=== PATIENT | female | born 1985 | race Caucasian/White ===

== ENCOUNTER → 2020-12-23 | Outpatient (CLI) | payer BC | END | disposition home or self-care (01) | LOC: LABWHC1 10:30 | PROVIDERS: ATTEND Obstetrics & Gynecology | DX: O20.0 Threatened abortion (principal); Z3A.00 Weeks of gestation of pregnancy not specified | CPT/HCPCS: 36415; 84702 ==

== ENCOUNTER → 2020-12-25 | Outpatient (CLI) | payer BC | END | disposition home or self-care (01) | LOC: LABWHC1 11:13 | PROVIDERS: ATTEND Obstetrics & Gynecology | DX: O20.0 Threatened abortion (principal); Z3A.00 Weeks of gestation of pregnancy not specified | CPT/HCPCS: 36415; 84702 ==

== ENCOUNTER → 2020-12-30 | Outpatient (CLI) | payer BC ==
[2020-12-30 16:20] LABS: Basophils % (A) 0 %; Eosinophils # (A) 0.1 k/uL (0-0.7); Eosinophils % (A) 1 %; HCT 40.7 % (34.0-46.0); Lymphocytes # (A) 2.4 k/uL (1.0-4.8); Lymphocytes % (A) 30 %; MCH 30.5 pg (25.0-35.0); MCHC 34.3 g/dL (31.0-37.0); MCV 88.9 fL (80.0-100.0); Mean Platelet Volume 7.1; Monocytes # (A) 0.4 k/uL (0-1.0); Monocytes % (A) 5 %; Neutrophils # (A) 4.9 k/uL (1.3-7.7); Neutrophils % (A) 61 %; Platelet Count 299 k/uL (150-450); RBC 4.58 m/uL (3.80-5.40); RDW 13.3 % (11.5-15.5)
== END | disposition home or self-care (01) ==
LOC: LABPAT 15:12
PROVIDERS: ATTEND Obstetrics & Gynecology
DX: Z01.818 Encounter for other preprocedural examination (principal); O02.1 Missed abortion; Z3A.00 Weeks of gestation of pregnancy not specified
CPT/HCPCS: 36415; 85025; 86850; 86900; 86901

== ENCOUNTER 2020-12-31 15:28 | Day surgery (SDC) | payer BC ==
[2020-12-31] MEDS ORDERED: ONDANSETRON 4 MG/2 ML VIAL ONE (15:44)
[2020-12-31] MEDS ORDERED: DEXAMETHASONE SOD PHOSPHATE 4 MG/ML 1 ML VIAL IVP ONE (15:56)
[2020-12-31] MEDS ORDERED: LACTATED RINGERS 1,000 ML IV ONE (15:56)
[2020-12-31] MEDS ORDERED: LIDOCAINE 1% INJ 10MG/ML (20 ML MDV) ONE (16:21)
[2020-12-31] MEDS ORDERED: KETOROLAC 15 MG/ML 1 ML VIAL ONE (16:21)
[2020-12-31] MEDS ORDERED: SUCCINYLCHOLINE CHLORIDE 100 MG/5 ML SYR IV ONE (16:21)
[2020-12-31] MEDS ORDERED: PROPOFOL 10 MG/ML 20 ML VIAL IV ONE (16:21)
[2020-12-31] MEDS ORDERED: fentaNYL (PF) 50 MCG/ML 2 ML AMP ONE (16:21)
[2020-12-31] MEDS ORDERED: SIMETHICONE 80 MG CHEWABLE PO PRN (17:04)
[2020-12-31] MEDS ORDERED: ONDANSETRON 4 MG/2 ML VIAL IVP PRN (17:04)
[2020-12-31] MEDS ORDERED: METOCLOPRAMIDE 5 MG/ML 2 ML VIAL IVP PRN (17:04)
[2020-12-31] MEDS ORDERED: Acetaminophen-Codeine 300-30mg TAB PO PRN ×2 (17:04)
[2020-12-31] MEDS ORDERED: diphenhydrAMINE 50 MG/ML 1 ML VIAL IVP PRN (17:04)
[2020-12-31] MEDS ORDERED: KETOROLAC 15 MG/ML 1 ML VIAL IVP PRN (17:04)
[2020-12-31] MEDS ORDERED: IBUPROFEN 600 MG TAB PO PRN (17:04)
[2020-12-31 17:06] VITALS: TEMP 97.5
--- NOTE | 2020-12-31 17:10 | P.OP ---
Date of Procedure: 12/31/20 Preoperative Diagnosis: #1. 7+ week missed #2. Fibroid uterus Postoperative Diagnosis: Same Procedure(s) Performed: #1. Dilation and aspiration curettage Anesthesia: ADI Surgeon: Demetri Eddy Estimated Blood Loss (ml): 200 IV fluids (ml): 400 Urine output (ml): 10 Pathology: other (Intrauterine contents) Condition: stable Disposition: PACU Operative Findings: Preoperative pelvic examination demonstrated a roughly 8 week midplane to slightly anteverted mobile normal shaped uterus with a probable roughly 8 cm mobile fibroid above and left of the uterus which I suspect to be pedunculated in nature. Adnexa were otherwise normal and without mass bilaterally. The uterus sounded to approximately 11 cm. Tissue was clearly seen passing through the tubing during aspiration curettage. Use of the sharp curet produced no further tissue and demonstrated the typical gritty texture. Uterus was appreciably smaller following curettage. Patient has minimal descensus of the uterus into the lower vagina. Description of Procedure: The patient was prepped and draped in usual fashion after general endotracheal anesthesia was administered by the anesthesiologist. A weighted speculum was pl aced and the bladder was draining approximately 10 mL of clear demetri urine. The anterior lip of the cervix was grasped with a single-tooth tenaculum and uterus sounded to 11 cm as noted above. Serial dilation was carried out to admit a #8 curved aspiration curet which was placed to the fundus of the uterus at which time suction was applied. After building adequate suction, thorough and circumferential aspiration curettage was carried out from the fundus to the cervix with tissue clearly seen passing through the tubing on the first pass. Second pass was made at which time there was no tissue noted. The aspiration curet was set aside in favor of a sharp curette was utilized to again thoroughly and circumferentially curet the contents of the in vitro cavity into the cervix and vagina with no tissue noted in the typical gritty texture felt throughout. Aspiration curet was used for one last pass at which again there was no further tissue noted. All instrumentation was removed and both tenaculum sites were noted to be bleeding and made hemostatic with pressure. Estimated blood loss for the entire case was approximately 200 mL. There were no complications. All sponge, instrument, needle counts were correct. The patient tolerated the procedure well and proceeded to the recovery room in stable condition.
[2020-12-31] MEDS ORDERED: LACTATED RINGERS 1,000 ML IV SCH (17:15)
[2020-12-31 17:17] VITALS: RESP 16
[2020-12-31 18:01] VITALS: BP 148/92; PULSE 91
== END 2020-12-31 18:27 | disposition home or self-care (01) ==
LOC: OR 15:28
PROVIDERS: ATTEND Obstetrics & Gynecology
DX: O02.1 Missed abortion (principal); D25.9 Leiomyoma of uterus, unspecified; Z98.891 History of uterine scar from previous surgery; Z82.49 Family history of ischemic heart disease and other diseases of the circulatory system; Z83.49 Family history of other endocrine, nutritional and metabolic diseases; Z80.3 Family history of malignant neoplasm of breast; Z90.13 Acquired absence of bilateral breasts and nipples
CPT/HCPCS: 59820; 86900; 86901; 88305; 86850; J1100; J2405; J2001; J3010; J1885; J0330; J2704

== ENCOUNTER 2021-08-20 10:14 | Outpatient (CLI) | payer BC ==
[2021-08-20 11:11] LABS: Basophils % (A) 0 %; Eosinophils # (A) 0.2 k/uL (0-0.7); Eosinophils % (A) 2 %; HGB 12.2 gm/dL (11.4-16.0); Lymphocytes # (A) 2.3 k/uL (1.0-4.8); Lymphocytes % (A) 24 %; MCHC 33.9 g/dL (31.0-37.0); MCV 91.6 fL (80.0-100.0); Mean Platelet Volume 7.3; Monocytes # (A) 0.4 k/uL (0-1.0); Monocytes % (A) 4 %; Neutrophils # (A) 6.6 k/uL (1.3-7.7); Neutrophils % (A) 68 %; Platelet Count 274 k/uL (150-450); RBC 3.93 m/uL (3.80-5.40); RDW 13.4 % (11.5-15.5); WBC 9.8 k/uL (3.8-10.6)
[2021-08-20 11:29] LABS: Appearance,Urine Clear (Clear); Bilirubin,Urine Negative (Negative); Blood,Urine Small (Negative); Color,Urine Light Yellow; Glucose,Urine (UA) Negative (Negative); Ketones,Urine Negative (Negative); Leukocyte Esterase,Urine Negative (Negative); Mucus,Urine Rare /hpf; Nitrite,Urine Negative (Negative); Protein,Urine Negative (Negative); RBC,Urine 2 /hpf (0-5); Specific Gravity,Urine 1.007 (1.001-1.035); Squamous Epithelial Cell,Urine 3 /hpf (0-4); Urobilinogen,Urine <2.0 mg/dL (<2.0); WBC,Urine 1 /hpf (0-5)
[2021-08-20 11:41] LABS: ALT 12 U/L (4-34); AST 19 U/L (14-36); African American GFR (CKD) >90 (>60 ml/min/1.73 sqM); Blood Urea Nitrogen 6 mg/dL (7-17); LDH 351 U/L (313-618); Non-African American GFR(CKD) >90 (>60 ml/min/1.73 sqM); Uric Acid 3.9 mg/dL (3.7-7.4)
[2021-08-20 11:49] LABS: Creatinine,Urine Random 43.8 mg/dL; Protein/Creatinine Ratio,Urine 0.594
[2021-08-20] MEDS ORDERED: LABETALOL 200 MG TAB PO STA (12:00)
[2021-08-20 13:33] VITALS: BP 165/97; PULSE 106; RESP 17; TEMP 96.9
--- NOTE | 2021-08-21 11:23 | P.MSEPDOC ---
Presenting Problems - Arrival Data Date of Arrival on Unit: 08/20/21 Time of Arrival on Unit: 10:14 Mode of Transport: Ambulatory - Complaint OB-Reason for Admission/Chief Complaint: Decreased Movement Comment: Pt arrives to triage with complaints of decreased movement. Medical History - Information : 3 Para: 1 Term: 1 : 0 Abortions: Spontaneous or Elective: 1 Number of Living Children: 0 - Gestational Age Gestational Age by FARRAH (wks/days): 25 Weeks and 4 Days - History Complications: Chronic HTN Review of Systems - Review of Systems Constitutional: No problems Breast: No problems ENT: No problems Cardiovascular: No problems Respiratory: No problems Gastrointestinal: No problems Genitourinary: No problems Musculoskeletal: No problems Neurological: No problems Skin: No problems Vital Signs - Temperature Temperature: 96.9 F Temperature Source: Temporal Artery Scan - Pulse Pulse Oximetery Pulse Rate: 106 Pulse Assessment Method: Pulse Oximetry - Respirations Respiratory Rate: 17 Oxygen Delivery Method: Room Air O2 Sat by Pulse Oximetry: 97 - Blood Pressure Right Arm Blood Pressure: 165/97 Blood Pressure Mean: 119 Blood Pressure Source: Automatic Cuff Medical Screen Scoring - Assessment - Baby A Baseline FHR: 140 Physician Notification - Physician Notified Physician Notified Date: 08/20/21 Physician Notified Time: 12:41 Physician: Carli Villavicencio New Order Received: Yes - Notification Comment Comment: Spoke with Dr. Villavicencio regarding pt's BP 30 minutes after administering 200. mg PO Labetalol. New orders include prescribed 200 mg PO Labetalol twice daily at home, hold medication if systolic BP is less than 120, and follow up with Dr. Eddy in office on Monday08/23/21. Maternal Triage Index - Maternal Triage Index Presenting for scheduled procedure w/no complaint: No - Stat/Priority 1 Stat Priority 1: Yes Provider Notified: Carli Villavicencio Provider Notified Time: 10:45 Criteria Met for Priority 1: Pt's BP Disposition - Disposition OB Disposition: Discharge to home Discharge Date: 08/20/21 Discharge Time: 12:48 I agree with the RN Medical Screening Exam: Yes Case reviewed; plan agreed upon as documented in EMR&OBIX.: Yes Diagnosis: chronic hypertension in
== END 2021-08-20 12:48 | disposition home or self-care (01) ==
LOC: FBPOP 10:14
PROVIDERS: ATTEND Obstetrics & Gynecology
DX: O16.2 Unspecified maternal hypertension, second trimester (principal); Z3A.25 25 weeks gestation of pregnancy
CPT/HCPCS: 81001; 82565; 82570; 83615; 84156; 84450; 84460; 84520; 84550; 85025; 99215

== ENCOUNTER 2021-11-24 08:30 | Inpatient (IN) | payer BC ==
[2021-11-24] MEDS ORDERED: CITRIC ACID-SODIUM CITRATE 15 ML CUP PO ONE (10:17)
[2021-11-24] MEDS ORDERED: LACTATED RINGERS 1,000 ML IV SCH (10:30)
[2021-11-24 10:48] LABS: Glucose,Whole Blood 84 mg/dL (75-99)
[2021-11-24 11:09] LABS: Basophils % (A) 0 %; Eosinophils # (A) 0.1 k/uL (0-0.7); Eosinophils % (A) 1 %; Lymphocytes # (A) 2.4 k/uL (1.0-4.8); Lymphocytes % (A) 23 %; MCHC 33.5 g/dL (31.0-37.0); MCV 89.4 fL (80.0-100.0); Mean Platelet Volume 8.1; Monocytes # (A) 0.5 k/uL (0-1.0); Monocytes % (A) 5 %; Neutrophils % (A) 69 %; Platelet Count 256 k/uL (150-450); RBC 4.02 m/uL (3.80-5.40); RDW 14.3 % (11.5-15.5); WBC 10.1 k/uL (3.8-10.6)
[2021-11-24 11:11] LABS: INR 0.9 (<1.2); Partial Thromboplastin Time 23.5 sec (22.0-30.0); Prothrombin Time 9.7 sec (9.0-12.0)
[2021-11-24 11:18] LABS: ALT 15 U/L (4-34); AST 30 U/L (14-36); African American GFR (CKD) >90 (>60 ml/min/1.73 sqM); Blood Urea Nitrogen 8 mg/dL (7-17); LDH 530 U/L (313-618); Non-African American GFR(CKD) >90 (>60 ml/min/1.73 sqM); Uric Acid 4.1 mg/dL (3.7-7.4)
[2021-11-24 11:33] LABS: Creatinine,Urine Random 73.6 mg/dL; Protein/Creatinine Ratio,Urine 0.435
--- NOTE | 2021-11-24 11:48 | P.PCN ---
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 Tooth # D - Composite crown and Vital pulpotomy 2. Tooth # E - Composite crown and Indirect pulp cap 3. Tooth # F - Composite crown and Indirect pulp cap 4. Tooth # G - Composite crown 5. Tooth # I - Dental composite 6. Tooth # J - Dental composite 7. Tooth # K - Dental composite 8. Tooth # L - Dental composite Throat pack out 10:46 Oral tube shifted Throat pack in 10:48 9, Tooth # A - Dental composite 10. Tooth # B - Dental composite 11. Tooth # S - Dental composite 12. Tooth # T - Stainless steel crown and Direct pulp cap Thrat pack out 11:21 Blood loss 1ml Post Op Instructions to parent
[2021-11-24] MEDS ORDERED: ONDANSETRON 4 MG/2 ML VIAL IVP PRN ×2 (12:06→13:15)
[2021-11-24] MEDS ORDERED: NALBUPHINE 10 MG/ML (1 ML AMP) IV PRN (12:06)
[2021-11-24] MEDS ORDERED: diphenhydrAMINE 50 MG/ML 1 ML VIAL IVP PRN ×3 (12:06→13:15)
[2021-11-24] MEDS ORDERED: NALOXONE 0.4 MG/ML 1 ML VIAL IV PRN (12:06)
[2021-11-24] MEDS ORDERED: HYDROmorphone 1 MG/ML 1 ML SYRINGE IVP PRN (12:06)
[2021-11-24] MEDS ORDERED: KETOROLAC 30 MG/ML 1 ML VIAL IVP PRN (12:06)
[2021-11-24] MEDS ORDERED: ONDANSETRON 4 MG/2 ML VIAL ONE (12:13)
[2021-11-24] MEDS ORDERED: MORPHINE SULFATE (PF) 0.3 MG/0.3 ML SYR ONE (12:13)
[2021-11-24] MEDS ORDERED: ePHEDrine 50 MG/ML 1 ML VIAL ONE (12:13)
[2021-11-24] MEDS ORDERED: KETOROLAC 15 MG/ML 1 ML VIAL ONE (12:13)
[2021-11-24] MEDS ORDERED: OXYTOCIN 30 UNITS/500 ML NS BAG IV ONE (12:13)
[2021-11-24] MEDS ORDERED: NALBUPHINE 10 MG/ML (1 ML AMP) ONE (12:13)
[2021-11-24 12:49] LABS: Appearance,Urine Cloudy (Clear); Bilirubin,Urine Negative (Negative); Blood,Urine Small (Negative); Color,Urine Yellow; Glucose,Urine (UA) Negative (Negative); Ketones,Urine Negative (Negative); Leukocyte Esterase,Urine Trace (Negative); Nitrite,Urine Negative (Negative); PH, Urine 7.5 (5.0-8.0); Protein,Urine Trace (Negative); RBC,Urine 1 /hpf (0-5); Specific Gravity,Urine 1.012 (1.001-1.035); Squamous Epithelial Cell,Urine 1 /hpf (0-4); Urobilinogen,Urine <2.0 mg/dL (<2.0); WBC,Urine 1 /hpf (0-5)
[2021-11-24] MEDS ORDERED: ZOLPIDEM 5 MG TAB PO PRN (13:15)
[2021-11-24] MEDS ORDERED: HYDROmorphone 2 MG TAB PO PRN ×2 (13:15)
[2021-11-24] MEDS ORDERED: METOCLOPRAMIDE 5 MG/ML 2 ML VIAL IVP PRN (13:15)
[2021-11-24] MEDS ORDERED: OXYTOCIN 30 UNITS/500 ML NS 30 UNIT in SALINE 1 500ML.BAG IV SCH (13:15)
[2021-11-24] MEDS ORDERED: SIMETHICONE 80 MG CHEWABLE PO PRN (13:15)
[2021-11-24] MEDS ORDERED: diphenhydrAMINE 25 MG CAP PO PRN (13:15)
[2021-11-24] MEDS ORDERED: diphenhydrAMINE 50 MG CAP PO PRN (13:15)
--- NOTE | 2021-11-24 13:24 | P.HPOB ---
History of Present Illness H&P Date: 11/24/21 Chief Complaint: 39-2/7 weeks, previous section, undesired fertility The patient is a 36-year-old 3 para 1011 admitted at 39-2/7 weeks as established by 9 week ultrasound. She is admitted for repeat low transverse section with intraoperative bilateral tubal occlusion using Filshie clips having previously undergone section. She did consent to tubal occlusion both in the office and here verbally. Her has been complicated by gestational diabetes for which she has had reassuring and well- managed diet controlled sugars. testing has been reassuring weekly. She additionally was started at the beginning of the third trimester on labetalol 100 mg twice daily for elevated blood pressures. Multiple workups for preeclampsia were noted to be negative. She does carry a history of pre- existing proteinuria and has never had any further problems during the . She also is known to have an 8 cm fundal fibroid by ultrasound which has not caused any problems during the nor grown significantly. Most recently, she has also been found to be breech in presentation. Group B strep status is negative. On labor and delivery, all signs reassuring with a category 1 heart rate tracing. Obstetrical history: 3 para 1011 with 1 term section one early miscarriage requiring D&C. Current statistics are listed in history present illness. EDC of 11/29/2021 was established by 9 week ultrasound. Laboratory workup demonstrates a blood type of O+ with a negative antibody sc reen. Rubella status is immune. The remainder of the laboratory workup was within normal limits. Early Glucola was normal was followed by an elevated second trimester Glucola and an abnormal three-hour glucose tolerance test making the diagnosis of gestational diabetes. Group B strep status is negative. Gynecologic history: Unremarkable with no history of any infections to include STDs. Review of Systems Review of systems is confined to history of present illness. Past Medical History Past Medical History: No Reported History Additional Past Medical History / Comment(s): GDM, hypertension History of Any Multi-Drug Resistant Organisms: None Reported Additional Past Surgical History / Comment(s): DOUBLE MASTECTOMY, D&C Past Anesthesia/Blood Transfusion Reactions: No Reported Reaction Past Psychological History: No Psychological Hx Reported Smoking Status: Never smoker Past Alcohol Use History: None Reported Past Drug Use History: None Reported Additional Drug Use History / Comment(s): FORMER SMOKER 4 YEARS AGO-TOBACCO - Past Family History Mother Additional Family Medical History / Comment(s): BREAST CX Father Family Medical History: Hypertension Medications and Allergies Home Medications Medication Instructions Recorded Confirmed Type Pnv,Calcium 72/Iron/Folic Acid 1 each PO DAILY 12/31/20 11/24/21 History [ Plus Tablet] Aspirin [Adult Low Dose Aspirin EC] 81 mg PO DAILY 08/20/21 11/24/21 History Labetalol [Trandate] 200 mg PO BID 11/24/21 11/24/21 History Allergies Allergy/AdvReac Type Severity Reaction Status Date / Time No Known Allergies Allergy Verified 11/24/21 10:16 Exam Vital Signs Temp Pulse Resp BP Pulse Ox 11/24/21 10:15 97.2 F L 92 18 174/88 98 Intake and Output 11/23/21 11/24/21 11/24/21 22:59 06:59 14:59 Other: Weight 105.233 kg In general, this is a well-developed, well-nourished white female in no acute distress. Her heart has a regular rhythm and rate without murmur. Her lungs clear to auscultation bilaterally in all lizarraga. Her abdomen is gravid, nondi stended, has normal active bowel sounds, soft, nontender, and without any palpable masses aside from the uterine fundus. Her extremities are without any cyanosis, clubbing, or edema and are nontender to palpation bilaterally. Digital cervical examination is deferred. Results Result Diagrams: 11/24/21 10:45 11/24/21 10:45 Abnormal Lab Results - Last 24 Hours (Table) 11/24/21 Range/Units 11:00 Urine Appearance Cloudy H (Clear) Urine Protein Trace H (Negative) Urine Blood Small H (Negative) Ur Leukocyte Esterase Trace H (Negative) Assessment and Plan (1) Family planning Current Visit: Yes Status: Acute Code(s): Z30.09 - ENCOUNTER FOR OTH GENERAL CNSL AND ADVICE ON CONTRACEPTION SNOMED Code(s): 803402113 (2) Previous section Current Visit: Yes Status: Acute Code(s): Z98.891 - HISTORY OF UTERINE SCAR FROM PREVIOUS SURGERY SNOMED Code(s): 597247435 (3) Term Current Visit: Yes Status: Acute Code(s): Z34.90 - ENCNTR FOR SUPRVSN OF NORMAL , UNSP, UNSP TRIMESTER SNOMED Code(s): 68091221 Plan: The patient is admitted for repeat low transverse section. She has also consented to intraoperative bilateral tubal occlusion using Filshie clips. The risks and, occasions all of these procedures have been thoroughly discussed and she has understood and agreed to proceed.
--- NOTE | 2021-11-24 13:30 | P.OP ---
Date of Procedure: 11/24/21 Preoperative Diagnosis: #1. 39-2/7 weeks, previous section, requesting repeat #2. Undesired fertility #3. Gestational diabetes #4. -induced hypertension #5. Breech presentation #. Fibroid uterus Postoperative Diagnosis: Same Procedure(s) Performed: #1. Repeat low transverse section #2. Intraoperative bilateral tubal occlusion using Filshie clips Anesthesia: spinal Surgeon: Demetri Eddy Office Services Associate #1: Jo-Ann Farias Estimated Blood Loss (ml): 872 IV fluids (ml): 900 Urine output (ml): 100 Pathology: none sent Condition: stable Disposition: floor Operative Findings: The patient was taken the operating room where she underwent repeat low transverse section was delivered of a viable 7 lbs. 9 oz. baby girl with Apgars of 9 at 1 minute and 9 at 5 minutes delivered in the davie breech presentation using standard breech maneuvers. The placenta was delivered manually, intact, and grossly normal with a grossly normal three-vessel cord. The uterus was noted to have a very large right fundal fibroid which was subserosal in nature and slightly posterior to the cornea. The tubes and ovaries were noted to be somewhat scarred to each other but we were able to place a Filshie clip without difficulty in the isthmic portion on each tube were was firmly affixed bilaterally. Description of Procedure: The patient was prepped and draped in usual fashion after spinal anesthesia was administered by the anesthesiologist. A Pfannenstiel incision was made through pre-existing scar and extended into the abdominal cavity with some difficulty as was a moderate amount of scarring at the level of the fascia and rectus muscles. Intraoperatively, the bladder peritoneum was elevated, incised, and reflected distally. A 2 cm incision was made in the transverse plane of the lower uterine segment to enter the uterus at which time clear fluid was noted. The incision was extended in both directions using the bandage scissors as well as to some extent and bluntly. The breech was encountered in the field and was delivered through the wound with the legs and arms being delivered with standard breech maneuvers. The head was easily delivered and the cord was doubly clamped, cut, and the infant passed resuscitative measures with weight and Apgars as noted above. cord blood was collected. A segment of cord was doubly clamped, cut, and set aside should cord gases become necessary. The placenta was delivered manually and intact as noted above. The uterus was exteriorized and the interior cavity swept of any remaining placental or membranous fragments margins of the incision were grasped with Quigley clamps and the incision closed in a single running locking stitch of 0 chromic catgut proceeding from margin to margin. Hemostasis appeared to be excellent. The posterior cul-de-sac was then suctioned with a guard as well as a laparotomy sponge. The uterine and ovarian findings are as noted above. After reaffirming the patient's desire for tubal ligation, a Filshie clip was placed across the isthmic portion of each fallopian tube approximately 2-3 cm from the cornea where was firmly affixed bilaterally. The uterus was replaced within the abdominal cavity and reexamined. The incision was noted to be hemostatic. The parietal peritoneum was loosely reapproximated in the layer of muscles made hemostatic with the Bovie. Once hemostasis was achieved, the fascia was closed with 2 running stitches of 0 Vicryl proceeding from the lateral margins to the midpoint. The subcutaneous tissues were irrigated, made hemostatic with the Bovie, and reapproximated with a running stitch of 30 plain catgut. The skin was reapproximated with a running subcuticular stitch of 4-0 Vicryl followed by half-inch Steri-Strips placed with Mastisol. Estimated blood loss for the case is approximately 872 mL (calculated). All sponge, instrument, and needle counts were correct. There were no complications. The patient tolerated the procedure well and proceeded to the recovery room in stable condition. Both mother and are resting comfortably in recovery.
[2021-11-24] MEDS: ACETAMINOPHEN TAB 500 MG TAB PO SCH ×2 (15:39→21:17)
[2021-11-24] MEDS: LABETALOL 200 MG TAB PO SCH ×2 (15:39→21:18)
[2021-11-24] MEDS: LACTATED RINGERS 1,000 ML IV SCH ×2 (15:40→21:18)
[2021-11-24] MEDS: IBUPROFEN 600 MG TAB PO SCH (18:53)
[2021-11-24] MEDS: SENNOSIDES-DOCUSATE SODIUM 1 EACH TAB PO SCH (21:17)
[2021-11-25] MEDS: IBUPROFEN 600 MG TAB PO SCH ×4 (03:01→20:08)
[2021-11-25] MEDS: ACETAMINOPHEN TAB 500 MG TAB PO SCH ×4 (05:44→23:30)
[2021-11-25 07:02] LABS: Basophils % (A) 0 %; Eosinophils % (A) 0 %; HGB 10.7 gm/dL (11.4-16.0); Lymphocytes # (A) 1.8 k/uL (1.0-4.8); Lymphocytes % (A) 10 %; MCH 29.2 pg (25.0-35.0); MCHC 32.5 g/dL (31.0-37.0); MCV 89.6 fL (80.0-100.0); Mean Platelet Volume 8.4; Monocytes # (A) 0.7 k/uL (0-1.0); Monocytes % (A) 4 %; Neutrophils # (A) 14.1 k/uL (1.3-7.7); Neutrophils % (A) 84 %; Platelet Count 227 k/uL (150-450); RBC 3.69 m/uL (3.80-5.40); RDW 14.2 % (11.5-15.5); WBC 16.8 k/uL (3.8-10.6)
--- NOTE | 2021-11-25 08:49 | P.PNOBGPC ---
Subjective - Subjective Patient reports: Reports appetite normal, Reports voiding normally, Reports pain well controlled, Reports ambulating normally [place]: doing well Objective - Vital Signs Latest vital signs: Vital Signs Temp Pulse Resp BP Pulse Ox 11/25/21 05:38 87 145/84 11/25/21 03:30 97.6 F 88 16 153/91 95 11/25/21 02:00 97 11/24/21 23:00 98.0 F 94 18 109/73 97 11/24/21 20:30 98.0 F 83 18 159/98 95 11/24/21 16:53 18 11/24/21 15:16 97.1 F L 88 18 165/90 97 11/24/21 14:59 18 11/24/21 14:46 83 18 156/84 97 11/24/21 14:16 85 18 150/91 95 11/24/21 14:01 95 18 145/80 96 11/24/21 13:46 85 18 139/78 98 11/24/21 13:31 92 18 143/92 97 11/24/21 13:16 97.0 F L 89 18 143/92 95 11/24/21 13:06 18 95 11/24/21 10:15 97.2 F L 92 18 174/88 98 Intake and Output 11/24/21 11/25/21 11/25/21 22:59 06:59 14:59 Output Total 650 875 Balance -650 -875 Output: Urine 600 875 Uretheral (Martin) 300 475 Output, Quantitative 50 Blood Loss Other: Voiding Method Indwelling Catheter # Voids 0 - Exam Extremities: Present: normal Abdomen: Present: normal appearance, soft. Absent: distention, tenderness Incision: Present: normal, dry, intact Uterus: Present: normal, firm (Uterine fundus is tonic an appropriate tender at the umbilicus.) - Labs Labs: Abnormal Lab Results - Last 24 Hours (Table) 11/24/21 11/25/21 Range/Units 11:00 06:37 WBC 16.8 H (3.8-10.6) k/uL RBC 3.69 L (3.80-5.40) m/uL Hgb 10.7 L (11.4-16.0) gm/dL Hct 33.0 L (34.0-46.0) % Neutrophils # 14.1 H (1.3-7.7) k/uL Urine Appearance Cloudy H (Clear) Urine Protein Trace H (Negative) Urine Blood Small H (Negative) Ur Leukocyte Esterase Trace H (Negative) Assessment and Plan (1) Family planning Current Visit: Yes Status: Acute Code(s): Z30.09 - ENCOUNTER FOR OTH GENERAL CNSL AND ADVICE ON CONTRACEPTION SNOMED Code(s): 229125140 (2) Previous section Current Visit: Yes Status: Acute Code(s): Z98.891 - HISTORY OF UTERINE SCAR FROM PREVIOUS SURGERY SNOMED Code(s): 549595970 (3) Term Current Visit: Yes Status: Acute Code(s): Z34.90 - ENCNTR FOR SUPRVSN OF NORMAL , UNSP, UNSP TRIMESTER SNOMED Code(s): 85417909 (4) S/P section Current Visit: Yes Status: Acute Code(s): Z98.891 - HISTORY OF UTERINE SCAR FROM PREVIOUS SURGERY SNOMED Code(s): 475095984 Plan: Continue routine and postoperative care. I have encouraged the patient and the hallways routinely. She is Juma tolerating a regular diet. I would anticipate discharge home tomorrow pending no complications. She does continue to require labetalol 200 mg twice daily at this time for blood pressure management.
[2021-11-25] MEDS: LABETALOL 200 MG TAB PO SCH ×2 (08:58→21:28)
[2021-11-25] MEDS: SENNOSIDES-DOCUSATE SODIUM 1 EACH TAB PO SCH ×2 (08:58→20:08)
--- NOTE | 2021-11-25 10:32 | P.PN ---
Progress Note - Text Progress Note Date: 11/25/21 Anesthesia Postop day 1 Subjective: Status Post section with Duramorph. Patient seen and examined. Doing well without complaint. VAS 3 out of 10. No nausea vomiting or pruritus. Afebrile. Gross lower extremity strength intact. Without apparent anesthetic complications. Objective: Vital signs reviewed Heart: Regular Rate Lungs: Good chest excursion Abdomen: Appears nondistended Assessment: Status post with Duramorph postop day 1 Plan: Continue current care with your medical management.
[2021-11-25] MEDS: LACTATED RINGERS 1,000 ML IV SCH (19:46)
[2021-11-26] MEDS: IBUPROFEN 600 MG TAB PO SCH ×2 (02:45→08:40)
[2021-11-26] MEDS: ACETAMINOPHEN TAB 500 MG TAB PO SCH (05:38)
[2021-11-26] MEDS: SENNOSIDES-DOCUSATE SODIUM 1 EACH TAB PO SCH (08:39)
[2021-11-26] MEDS: LABETALOL 200 MG TAB PO SCH (08:41)
[2021-11-26 09:32] VITALS: BP 150/92; PULSE 104; RESP 16; TEMP 97.7
--- NOTE | 2021-11-26 10:42 | P.DS ---
Providers Date of admission: 11/24/21 09:51 Expected date of discharge: 11/26/21 Attending physician: Demetri Eddy Primary care physician: Stated None - Discharge Diagnosis(es) (1) Family planning Current Visit: Yes Status: Acute (2) Previous section Current Visit: Yes Status: Acute (3) Term Current Visit: Yes Status: Acute (4) S/P section Current Visit: Yes Status: Acute Hospital Course: The patient is a 36-year-old 3 para 1011 admitted at 39-2/7 weeks by good dating parameters perches admitted for repeat low transverse section with intraoperative bilateral tubal occlusion with Filshie clips. Her was comfortable by gestational diabetes for which she had excellent sugar control with diet alone. testing was reassuring throughout. She additionally did have -induced hypertension for which she ultimately ended on labetalol 200 mg twice daily which controlled her blood sugars. Multiple workups for preeclampsia have been negative throughout the . She also is known to have an 8 cm fundal fibroid which did not cause any difficulties during the . She was also known to be breech. She was taken to the operating room where she was delivered of a viable 7 lbs. 9 oz. baby girl with Apgars of 9 at 1 minute and 9 at 5 minutes delivered in breech presentation. Her postoperative and courses were unremarkable vital signs being stable and her temperature was afebrile throughout. She was deemed stable for discharge on and postoperative day #2 and was discharged home to follow-up in the office in 2 weeks for an incision check and 6 weeks routinely. Discharge instructions included calling for any significantly increased bleeding or foul-smelling lochia, significantly increased fever or abdominal pain, perineal complaints, breast complaints, incisional complaints, or anything else that concerned her. She was additionally instructed to have nothing in the vagina for at least 6 weeks time to include intercourse and to abstain from any heavy lifting over the same period of time. She was lastly instructed to do no driving until off of all pain medications or 2 weeks' time, whichever came first. She understood all of her instructions and agrees to follow up as noted above. Discharge medications included continued vitamins as well as [id number] analgesic pain medications as needed. She was provided a prescription for tramadol 50 mg 1-2 by mouth every 6 hours when necessary pain, #20 dispensed with no refills. Maternal blood type is O+ and rubella status is immune. Discharge hemoglobin and hematocrit were 10.7 and 33.0 respectively. Procedures: #1. Repeat low transverse section #2. Intraoperative bilateral tubal occlusion with Filshie clips Patient Condition at Discharge: Stable Plan - Discharge Summary New Discharge Prescriptions: No Action Aspirin [Adult Low Dose Aspirin EC] 81 mg PO DAILY Pnv,Calcium 72/Iron/Folic Acid [ Plus Tablet] 1 each PO DAILY Labetalol [Trandate] 200 mg PO BID Discharge Medication List Pnv,Calcium 72/Iron/Folic Acid [ Plus Tablet] 1 each PO DAILY 12/31/20 [History] Aspirin [Adult Low Dose Aspirin EC] 81 mg PO DAILY 08/20/21 [History] Labetalol [Trandate] 200 mg PO BID 11/24/21 [History] Follow up Appointment(s)/Referral(s): Demetri Eddy MD [STAFF PHYSICIAN] - 2 Weeks Discharge Disposition: HOME SELF-CARE
== END 2021-11-26 13:00 | disposition home or self-care (01) | DRG 785 ==
LOC: 4FBP 09:51
PROVIDERS: ADMIT Obstetrics & Gynecology; ATTEND Obstetrics & Gynecology
PROC: 0UL70CZ Occlusion of Bilateral Fallopian Tubes with Extraluminal Device, Open Approach (ICD-10-PCS; 2021-11-24)
PROC: 10D00Z1 Extraction of Products of Conception, Low, Open Approach (ICD-10-PCS; principal; 2021-11-24 12:00)
DX: O34.211 Maternal care for low transverse scar from previous cesarean delivery (principal); O32.1XX0 Maternal care for breech presentation, not applicable or unspecified; O24.420 Gestational diabetes mellitus in childbirth, diet controlled; O34.13 Maternal care for benign tumor of corpus uteri, third trimester; O13.4 Gestational [pregnancy-induced] hypertension without significant proteinuria, complicating childbirth; D25.9 Leiomyoma of uterus, unspecified; Z37.0 Single live birth; Z30.2 Encounter for sterilization; Z3A.39 39 weeks gestation of pregnancy; Z79.82 Long term (current) use of aspirin; Z87.891 Personal history of nicotine dependence; Z90.13 Acquired absence of bilateral breasts and nipples; Z87.59 Personal history of other complications of pregnancy, childbirth and the puerperium
CPT/HCPCS: 81001; 82565; 82570; 83615; 84156; 84450; 84460; 84520; 84550; 85025; 85610; 85730; 86850; 86900; 86901

== ENCOUNTER → 2024-10-21 | Outpatient (CLI) | payer BC ==
[2024-10-22 02:34] LABS: Basophils # (A) 0.02 X 10*3/uL (0.00-0.10); Basophils % (A) 0.4 %; Eosinophils # (A) 0.09 X 10*3/uL (0.04-0.35); Eosinophils % (A) 1.6 %; HCT 40.3 % (37.2-46.3); HGB 12.4 g/dL (12.0-15.0); Lymphocytes # (A) 2.81 X 10*3/uL (0.90-5.00); Lymphocytes % (A) 50.3 %; MCH 26.4 pg (27.0-32.0); MCHC 30.8 g/dL (32.0-37.0); MCV 85.9 FL (80.0-97.0); Mean Platelet Volume 10.7 FL (9.5-12.2); Monocytes % (A) 8.9 %; NRBC Per 100 WBC 0 X 10*3/uL (0.00-0.01); Neutrophils # (A) 2.16 X 10*3/uL (1.80-7.70); Neutrophils % (A) 38.6 %; Platelet Count 394 X 10*3/uL (140-440); RBC 4.69 X 10*6/uL (4.10-5.20); RDW 15.5 % (11.5-14.5); WBC 5.59 X 10*3/uL (4.50-10.00)
[2024-10-22 03:05] LABS: Blood Urea Nitrogen 14.7 mg/dL (9.0-27.0); Carbon Dioxide 24.9 mmol/L (21.6-31.8); Chloride 104 mmol/L (96-109); Glucose 88 mg/dL (70-110); Potassium 4.5 mmol/L (3.5-5.5); Sodium 140 mmol/L (135-145)
== END | disposition home or self-care (01) ==
LOC: LABPAT 16:04
PROVIDERS: ATTEND Obstetrics & Gynecology
DX: Z01.818 Encounter for other preprocedural examination (principal); Z15.01 Genetic susceptibility to malignant neoplasm of breast
CPT/HCPCS: 80051; 82565; 82947; 84520; 85025; 86850; 86900; 86901; 87086

== ENCOUNTER → 2024-10-28 | Outpatient (CLI) | payer BC | END | disposition home or self-care (01) | LOC: LABPAT 10:20 | PROVIDERS: ATTEND Anesthesiology | DX: Z01.818 Encounter for other preprocedural examination (principal); Z53.9 Procedure and treatment not carried out, unspecified reason ==